=== PATIENT | female | born 2005 | race Asian ===

== ENCOUNTER 2025-03-06 22:21 | Emergency (ER) | payer MEDICAID ==
[~2025-03-06] VITALS: Ht 165.1 cm; Wt 86.8 kg
[2025-03-06 23:00] VITALS: BP 144/84; RESP 18; TEMP 99.2
--- NOTE | 2025-03-06 23:11 | ECG ---
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
[2025-03-06] MEDS: SODIUM CHLORIDE 0.9% 1,000 ML IV ONE (23:30)
[2025-03-06 23:42] LABS: Basophils # (auto) 0.1 10 ^3/uL (0-0.2); Basophils % (auto) 0.5 % (0.0-2.0); Eosinophils # (auto) 0 10 ^3/uL (0-0.8); Eosinophils % (auto) 0.1 % (0.0-7.0); Hematocrit 44.9 % (36.0-46.0); Hemoglobin 15.1 g/dL (12.2-16.2); Lymphocytes # (auto) 1.9 10 ^3/uL (0.4-5.4); Lymphocytes % (auto) 12.6 % (10.0-50.0); Mean Corpuscular Hemoglobin 29.6 pg (28.0-32.0); Mean Corpuscular Hgb Conc. 33.5 g/dL (32.0-36.0); Mean Corpuscular Volume 88.2 fL (80.0-100.0); Monocytes % (auto) 6.3 % (0.0-12.0); Neutrophils # (auto) 12.3 10 ^3/uL (1.6-8.6); Neutrophils % (auto) 80.5 % (37.0-80.0); Platelet Count (auto) 226 10^3/uL (140-450); Red Blood Cells 5.09 10^6/uL (4.0-5.20); Red Cell Distribution Width 13.1 % (11.8-14.3); White Blood Cell 15.3 10^3/uL (4.4-10.8)
--- NOTE | 2025-03-06 23:47 | ED.PDOC ---
History of Present Illness HPI Comments 19-year-old female presents to ER with complaints of flu-like symptoms x1 day. Patient reports that she has been experiencing productive cough with green phlegm, congestion, sore throat and intermittent nausea x1 day. Reports positive exposure to sick contacts at home and rates her current sore throat pain a 5/10. States that she last took [id number] NyQuil at 9:00 p.m. prior to arrival to ER. Patient presents to ER afebrile, ambulatory, with steady gait, in no distress and is noted to be tachycardic on arrival at 134. Denies shortness of breath, chest pain, hemoptysis, fever, body aches, chills, night sweats, vomiting, dizziness, palpitations, headache or any further symptoms/complaints Chief Complaint: Flu like Time Seen by MD: 22:28 Primary Care Provider: UNKNOWN Reviewed Notes: Nurses Notes, Medications, Allergies Information Source: Patient Mode of Arrival: Ambulatory Past Medical History PAST MEDICAL HISTORY: Denies Surgical History: Denies all surgeries Family History Family History: Unknown Social History Smoker: Non-Smoker Alcohol: Denies ETOH Use Drugs: Denies Drug Use Lives In: Home Constitutional: No Symptoms Reported EENTM: See HPI Respiratory: See HPI Cardiovascular: No Symptoms Reported Gastrointestinal: See HPI Genitourinary: No Symptoms Reported Neurological: No Symptoms Reported Musculoskeletal: No Symptoms Reported Integumentary: No Symptoms Reported Allergic/Immunocompromised: others Hematologic/Lymphatic: No Symptoms Reported Endocrine: No Symptoms Reported Psychiatric: No symptoms Reported Physical Exam General Appearance: No Apparent Distress, Obese HEENT: Normal ENT Inspection, PERRL/EOMI, Pharynx Normal, TMs Normal Neck: Full Range of Motion, Non-Tender, Normal Respiratory: Chest Non-Tender, Lungs Clear, No Accessory Muscle Use, No Respiratory Distress, Normal Breath Sounds Cardiovascular: No Murmur, No Gallop, Tachycardia Breast Exam: Deferred Gastrointestinal: Non Tender, No Pulsatile Mass, Soft Genitalia: Deferred Pelvic: Deferred Rectal: Deferred Extremities: Normal capillary refill, Normal range of motion Neurologic: Alert, covering machine tender II-XII nml as Tested, No Motor Deficits, Normal Affect, Normal Mood, No Sensory Deficits Cerebellar Function: Normal Reflexes: Normal Skin: Dry, Normal Color, Warm Peripheral Pulses: 3+ Radial (R), 3+ Radial (L), 3+ Brachial (R), 3+ Brachial (L) Lymphatic: No Adenopathy Was a procedure done? Was a procedure done?: No Sedation Sedation?: No EKG EKG : Pulse Rate (adult): 142 Cardiac Rhythm: ST Block: None Hypertrophy: None ST: Normal Fever Differential Dx Differential Diagnosis: Myocardial Infarction, Pneumonia, Sepsis, Pharyngitis, Other (COVID-19, INFLUENZA) X-Ray, Labs, Meds, VS Vital Signs Date Time Temp Pulse Resp B/P (MAP) Pulse Ox O2 Delivery O2 Flow Rate FiO2 03/07/25 01:07 108 98 03/06/25 23:47 142 03/06/25 23:10 142 03/06/25 23:00 99.2 134 18 144/84 (104) 97 99.2 Lab Test 03/07/25 00:46 03/06/25 23:21 03/06/25 23:00 Range/Units Lactic Acid Level 2.0 0.4-2.0 mmol/L White Blood Count 15.3 H 4.4-10.8 10^3/uL Red Blood Count 5.09 4.0-5.20 10^6/uL Hemoglobin 15.1 12.2-16.2 g/dL Hematocrit 44.9 36.0-46.0 % Mean Corpuscular Volume 88.2 80.0-100.0 fL Mean Corpuscular Hemoglobin 29.6 28.0-32.0 pg Mean Corpuscular Hemoglobin Concent 33.5 32.0-36.0 g/dL Red Cell Distribution Width 13.1 11.8-14.3 % Platelet Count 226 140-450 10^3/uL Mean Platelet Volume 9.2 6.9-10.8 fL Neutrophils (%) (Auto) 80.5 H 37.0-80.0 % Lymphocytes (%) (Auto) 12.6 10.0-50.0 % Monocytes (%) (Auto) 6.3 0.0-12.0 % Eosinophils (%) (Auto) 0.1 0.0-7.0 % Basophils (%) (Auto) 0.5 0.0-2.0 % Neutrophils # (Auto) 12.3 H 1.6-8.6 10 ^3/uL Lymphocytes # (Auto) 1.9 0.4-5.4 10 ^3/uL Monocytes # (Auto) 1.0 0-1.3 10 ^3/uL Eosinophils # (Auto) 0 0-0.8 10 ^3/uL Basophils # (Auto) 0.1 0-0.2 10 ^3/uL Nucleated Red Blood Cells 0.0 % Sodium Level 140 136-145 mmol/L Potassium Level 4.0 3.5-5.1 mmol/L Chloride Level 107 98-107 mmol/L Carbon Dioxide Level 26 20-31 mmol/L Anion Gap 7 5-15 Blood Urea Nitrogen 6 L 9-23 mg/dL Creatinine 0.82 0.550-1.02 mg/dL Glomerular Filtration Rate Calc 106 >90 mL/min BUN/Creatinine Ratio 7.3 L 10.0-20.0 Serum Glucose 90 74-106 mg/dL Calcium Level 10.1 8.7-10.4 mg/dL Troponin I High Sensitivity < 3 L </=34 ng/L Influenza Type A Antigen Negative Negative Influenza Type B Antigen Negative Negative SARS-CoV-2 Antigen (Rapid) Negative NEGATIVE Current Medications Medications (Trade) Dose Ordered Sig/Nisha Route Start Time Stop Time Status Last Admin Sodium Chloride 1,000 ml @ 1,000 mls/hr Q1H ONCE IV 03/06/25 23:30 03/07/25 00:29 DC 03/06/25 23:30 Ceftriaxone Sodium 50 ml @ 100 mls/hr ONCE ONCE IV 03/07/25 00:00 03/07/25 00:29 DC 03/07/25 00:52 PATIENT: STEPHANIE MIRANDA ACCT: [id number] UNIT: [id number] : 2005 LOC: ER ROOM / BED: / AGE / SEX: 19 / F ADM STATUS: REG ER SERVICE [id number] ORDERING PHYSICIAN: MATILDE OLIVAS PROCEDURE(s): CXR2 - CHEST TWO VIEWS ROUTINE REASON: cough ORDER NUMBER(s): [id number], ACCESSION NUMBER(s): [id number] CHEST RADIOGRAPH Indication: cough Technique: Frontal and lateral view of the chest was obtained Comparison: None FINDINGS: Lines and Tubes: None Lungs: Clear Pleura: No effusion. No pneumothorax. Cardiomediastinal contours: Unremarkable Bones: Unremarkable IMPRESSION: No abnormality. ATED BY: DAKOTA RIZVI MD DICTATED DATE/TIME: 03/07/2528 SIGNED BY: DAKOTA RIZVI MD SIGNED DATE/TIME: 03/07/2528 CC: WAIVER SIGNED EKG REVIEWED CBC REVIEWED- WBC 15.3 BMP REVIEWED WITHOUT ANY SIGNIFICANT ABNORMALITIES TROPONIN REVIEWED-NORMAL LACTIC ACID REVIEWED - NORMAL SWAB RESULTS REVIEWED - NEGATIVE HEP-LOCK IV ORDERED NS 1 L IV ORDERED ROCEPHIN 1 G IV ORDERED PATIENT HAD IMPROVEMENT IN SYMPTOMS AND IN NO DISTRESS PRIOR TO DISCHARGE ADVISED TO DRINK PLENTY OF FLUIDS ADVISED TO FOLLOW UP WITH PCP IN 1-2 DAYS PATIENT VERBALIZED UNDERSTANDING AND AGREEABLE WITH CURRENT PLAN OF CARE ADVISED TO RETURN TO ER IMMEDIATELY IF SYMPTOMS WORSEN Images Reviewed?: Images reviewed and evaluated by me Time of 1ST Reevaluation: 23:42 Reevaluation 1ST: N/A Time of 2ND Reevaluation: 01:20 Reevaluation 2ND: Improved Patient Education/Counseling: Diagnosis, Treatment, Prognosis, Need For Follow Up Family Education/Counseling: No Family Present Departure 1 Departure Time of Disposition: 01:24 Impression: Primary Impression: Upper respiratory infection Qualified Codes: J06.9 - Acute upper respiratory infection, unspecified Disposition: 01 HOME / SELF CARE / HOMELESS Condition: Stable e-Prescriptions Acetaminophen (Acetaminophen) 500 Mg Tab 500 MG PO Q4HPRN, #30 TAB 0 Refills Prov: MATILDE OLIVAS 03/07/25 Prednisone (Prednisone) 20 Mg Tab 20 MG PO BID for 5 Days, #10 TAB 0 Refills Prov: MATILDE OLIVAS 03/07/25 Azithromycin (Azithromycin) 250 Mg Tab 250 MG PO DAILY MDD 500 for 5 Days, #6 TAB 0 Refills 2 TABLETS ORALLY ON DAY ONE, THEN 1 TABLET ORALLY DAILY FOR 4 DAYS Prov: MATILDE OLIVAS 03/07/25 Discharged With: Self Critical Care Note Critical Care Time?: No Stability Stability form required: No Heart Score Heart Score: Heart Score Response (Comments) Value History N/A 0 EKG N/A 0 Age N/A 0 Risk Factors N/A 0 Troponin N/A 0 Total 0 MATILDE OLIVAS Mar 06, 2025 23:47
[2025-03-06 23:49] LABS: Chloride 107 mmol/L (98-107); Sodium 140 mmol/L (136-145)
[2025-03-06 23:50] LABS: Anion Gap 7 (5-15); Carbon Dioxide 26 mmol/L (20-31)
[2025-03-06 23:51] LABS: Calcium 10.1 mg/dL (8.7-10.4)
[2025-03-06 23:55] LABS: BUN/Creatinine Ratio 7.3 (10.0-20.0); Glucose 90 mg/dL (74-106)
[2025-03-06 23:57] LABS: Blood Urea Nitrogen 6 mg/dL (9-23)
[2025-03-07 00:15] LABS: COVID19 ANTIGEN SOFIA FIA NEGATIVE (NEGATIVE)
[2025-03-07 00:16] LABS: Rapid Influenza A Negative (Negative); Rapid Influenza B Negative (Negative)
--- NOTE | 2025-03-07 00:31 | DVH ---
CHEST RADIOGRAPH Indication: cough Technique: Frontal and lateral view of the chest was obtained Comparison: None FINDINGS: Lines and Tubes: None Lungs: Clear Pleura: No effusion. No pneumothorax. Cardiomediastinal contours: Unremarkable Bones: Unremarkable IMPRESSION: No abnormality.
[2025-03-07] MEDS ORDERED: PRED20TA2 PO (00:35)
[2025-03-07] MEDS ORDERED: ACET500T58 PO (00:35)
[2025-03-07] MEDS ORDERED: AZIT-43 PO (00:35)
[2025-03-07] MEDS: cefTRIAXone 1GM/50ML D5W 50 ML IV ONE (00:52)
[2025-03-07 01:07] VITALS: PULSE 108; O2SAT 98
== END 2025-03-07 01:36 | disposition home or self-care (01) ==
LOC: ER 22:21
DX: J06.9 Acute upper respiratory infection, unspecified (principal); Z20.822 Contact with and (suspected) exposure to COVID-19
CPT/HCPCS: 36415; 71046; 80048; 83605; 84484; 85025; 87426; 87804; 93005; 96361; 96365; 99285; J0696; J7030